=== PATIENT | female | born 1985 | race Caucasian/White ===

== ENCOUNTER 2021-07-27 08:46 | Day surgery (SDC) | payer MEDICARE, MEDICAID, SELFPAY ==
--- NOTE | 2021-07-10 13:49 | HP.PCM_ITS ---
History and Physical Date of Admission: 07/27/21 HPI: The patient is a 36 year old female presenting for pre-operative visit. She is scheduled for hysteroscopy dilation and curettage, possible IUD insertion, endometrial ablation, laparoscopic bilateral salpingectomy, for virilization and menstrual dysfunction, desires to be off OCPS on 07/27/2021. Procedure discussed along with risks, benefits and complications. Other alternatives discussed for management. Consent form signed? No- needs signed day of surgery by her father who is her health care guardian. ? ? PAST MEDICAL HISTORY PAST MEDICAL HISTORY Diagnosis Date ? ADD (attention deficit disorder) 05/24/2011 ? Learning disability 05/24/2011 ? Other abnormal heart sounds ? ? Murmur ? PMH - PAST MEDICAL HISTORY OF ? Color Vision - Normal ? ? PAST SURGICAL HISTORY PAST SURGICAL HISTORY Procedure Laterality Date ? INCISION EARDRUM,ASPIR,GEN ANESTH ? ? ? Myringotomy/tubes ? PAST SURGICAL HISTORY OF ? ? ? right foot-big toe ingrown nail ? PAST SURGICAL HISTORY OF ? ? ? wisdom teeth ? PAST SURGICAL HISTORY OF ? ? ? mole removal x 5 ? REMOVAL ADENOIDS,PRIMARY,<12 Y/O ? ? ? Adenoidectomy ? REMOVAL OF TONSILS,<12 Y/O ? ? ? Tonsillectomy ? ? ? CURRENT MEDICATIONS Current Outpatient Medications Medication Sig Dispense Refill ? nystatin (MYCOSTATIN) powder Apply 1 application to affected area twice daily. twice daily for 1--2 weeks as needed for irritation 1 Bottle 2 ? Drospirenone-Ethinyl Estradiol 3-0.03 mg per tablet Take 1 tablet by mouth once daily. 3 Package 3 ? mometasone (ELOCON) 0.1 % cream Apply 1 application to affected area once daily. (Patient not taking: Reported on 04/17/2019 ) 15 g 1 ? atomoxetine (STRATTERA) 40 mg capsule Take 40 mg by mouth once daily. 1 tablet in morning ? ? ? sertraline 100 mg tablet Take 100 mg by mouth once daily. ? ? ? ARIPiprazole (ABILIFY) 20 mg tablet Take 20 mg by mouth once daily. ? ? ? No current facility-administered medications for this visit. ? ? ALLERGIES: Patient has no known allergies. ? PERSONAL HISTORY: SOCIAL HISTORY Social History ? Tobacco Use ? Smoking status: Never Smoker ? Smokeless tobacco: Never Used Vaping Use ? Vaping Use: Never used Substance Use Topics ? Alcohol use: No ? Drug use: No ? FAMILY HISTORY: FAMILY HISTORY FAMILY HISTORY Problem Relation Age of Onset ? None Mother ? ? other (rheumatoid arthritis [Other]) Father ? ? No Known Problems Brother ? ? Cancer Maternal Grandmother ? ? lung ? Arthritis Paternal Grandmother ? ? ? REVIEW OF SYMPTOMS: GENERAL: denies fevers or chills ENDOCRINOLOGY: has not been on steroids Cardiology : denies palpitations or chest pain Respiratory: denies SOB or cough Hematology: denies history of prolonged bleeding or easy bruising or VTE Allergy: Denies history of personal or family history of allergy to anesthesia ? PHYSICAL EXAMINATION: ? VITALS: Blood pressure 118/76, pulse 84, resp. rate 16, height 5' 8.5 (1.74 m), weight 203 lb (92.1 kg), last menstrual period 05/14/2021. ? GENERAL: The patient is well nourished, well hydrated in no acute distress. , The patient is oriented to time, place, and person. NECK: Supple. No lynphadenopathy, normal thyroid, no thyromegaly. LUNGS: Clear to auscultation bilaterally. no wheezes, rhonchi or rales HEART: Regular rate and rhythm, Normal heart sounds and No murmurs or gallops ? IMPRESSION: .sterilization request, menstrual discorder ? PLAN: The risks/benefits/alternatives and personal involved for the planned hysteroscopy D&C with endometrial ablation and laparoscopic bilateral salpingectomy were reviewed with the patient. Her questions were answered to her satisfaction and she desires to proceed. I reviewed with her postop instructions and expectations. ? Postop prescriptions were given. Consent needs signed day of surgery by her father, who is her healthcare guardian/power of insurance defense attorney. Patient understands she will be permanently in the reversibly unable to bear children. Will insert Liletta or Mirena IUD if unable to do ablation due to small size of the uterus. ? ? I have reviewed and updated past medical and surgical history, medications and allergies This H&P was completed in my office on 07/10/2021. Assessment & Plan Assessment/Plan (1) Menstrual disorder: (2) Sterilization:
[2021-07-27] VITALS (10 sets, daily range): BP systolic 120–138; BP diastolic 69–96; PULSE 66–99; RESP 14–16; TEMP 35.9–36.1; O2SAT 89–98; BMI 30.9
[2021-07-27 09:19] LABS: Internal QC Validated? YES +Cl - CLEAR BKGD; Pregnancy, Urine Negative Negative
[2021-07-27] MEDS: Acetaminophen 500 MG Tablet 1000 MG PO (09:28)
[2021-07-27] MEDS: Celecoxib 200 MG Capsule PO (09:28)
[2021-07-27] MEDS: Lactated Ringers 1,000 ML 100 ML IV (09:29)
[2021-07-27 09:41] LABS: Hematocrit 42.4 % (37-47); Hemoglobin 14.3 g/dL (12.0-15.0); Mean Corp Hgb Conc 33.7 g/dL (32-36); Mean Corpuscular Hgb 28.9 pg (27.0-32.0); Mean Corpuscular Volume 85.8 fL (81-99); Mean Platelet Vol. 9.5 fl (6.2-12.0); Platelet Count 198 K/mm3 (150-450); RBC Distribution Width CV 12.5 % (11.6-14.6); RBC Distribution Width SD 38.7 fl (35.1-43.9); Red Blood Count 4.94 M/mm3 (4.2-5.4); White Blood Count 7.4 K/mm3 (4.4-11.0)
--- NOTE | 2021-07-27 10:15 | FALS_PTH ---
PATIENT: SHERYL NGUYEN LOC: [facility] [place] U#:[id number] AGE/SX: 36/F ROOM: RE07/27/[address]: Dr. Shwetha Fitzpatrick MD : 1985 BED: DIS: 07/27/2021 SPEC #: [id number] RECD: 07/27/21 12:35 STATUS: RONNIE REQ #: [id number] DAMIAN: 07/27/21 10:[address]: Shwetha Fitzpatrick DEPT: SURGICAL PATHOLOGY RECD BY: Britta Aguirre ENTERED: 07/27/21 12:54 SP TYPE: FALL TUBES OTHR DR: Ashly Primary Care Phys Tissues: A - Fallopian tube B - Perineum, NOS C - Endometrium, NOS Procedures: Surgery Specimen Level II Surgery Specimen Level IV HEADER OPERATION: Laparoscopic salpingectomy PRE-OP DIAGNOSIS: Sterilization TISSUE SUBMITTED: A - Bilateral fallopian tubes, B - Biopsy posterior cul-de-sac, C - Endometrial curettings MICROSCOPIC DIAGNOSIS A. Bilateral fallopian tubes, salpingectomy: Bilateral fallopian tubes, no pathologic diagnosis. B. Posterior cul-de-sac, biopsy: Scant strips of benign mesothelial epithelium. Fragments of fibrinous material. See comment. C. Endometrial curettings: Proliferative endometrium. Fragments of benign ecto- and endocervical epithelium. See comment. SJ:rg 07/28/2021 COMMENT B. The specimen predominantly consists of fibrinous material. C. A few fragments appear to be polypoid appearance may represent fragments of polyp. MICROSCOPIC DESCRIPTION Slides are reviewed. GROSS DESCRIPTION A - Received in fixative is one container labeled with the patient's name and designated bilateral fallopian tubes. The specimen consists of bilateral fallopian tubes including fimbrial ends measuring 5.5 cm in length and 0.5 cm in diameter and 5 cm in length and 0.5 cm in diameter. The fallopian tubes are not identified as right or left. Sections reveal unremarkable cut surfaces. Line Tender Flakeboard sections are submitted in two cassettes with each cassette containing one fallopian tube. B - Received in fixative is one container labeled with the patient's name and designated biopsy posterior cul-de-sac. The specimen consists of multiple irregular fragments of negron-yellow soft tissue that in aggregate measure 1.5 x 0.5 x 0.1 cm. The specimen is totally submitted in one cassette. C - Received in fixative is one container labeled with the patient's name and designated endometrial curettings. The specimen consists of multiple fragments of hemorrhagic soft tissue mixed with blood clot that in aggregate measure 4 x 3 x 0.3 cm. The entire specimen is submitted in two cassettes. / SJ:betsey 07/27/21 TC:5 CPT: 21760 x2, 77424 x2
[2021-07-27] MEDS: Lactated Ringers 1,000 ML 75 ML IV (10:45)
[2021-07-27] MEDS: Bupivacaine Mpf 0.5% 30 ML VIAL (10:59)
--- NOTE | 2021-07-27 11:13 | PCM.OPRPT ---
Report of Operation Date of Procedure: 07/27/21 Pre-Operative Diagnosis: Menorrhagia and sterilization request Post-Operative Diagnosis: Same plus peritoneal cyst in the posterior cul-de-sac Surgery/Procedure Performed:: Hysteroscopy dilation and curettage with Mariam endometrial ablation, laparoscopic bilateral salpingectomy and peritoneal biopsy Description of Surgical Findings:: Normal-appearing uterus, normal vagina with small introitus. Normal cervix. Bilateral fallopian tubes are normal in appearance as well as the uterus. There was some peritoneal cysts and filmy adhesions of peritoneum in the posterior cul-de-sac and also a sebaceous type material that was approximately 1.5 cm in diameter entrapped in some of the adhesions. Lush endometrium with possible small polyps. Surgeon: Shwetha Fitzpatrick equipment operating engineer: poppy Acosta Type of Anesthesia: General Anesthesiologist: Christel Champion Special Medications: non Specimen's removed: endometrial curettings, bilateral fallopian tubes, peritoneal posterior cul de sac biopsy Estimated Blood Loss (mL): 20 Fluids Replaced: 1100 Description of Procedure: The patient was taken to the operating room where she was prepped and draped in the dorsolithotomy position. A weighted speculum was placed in the vagina and the anterior lip of the cervix was grasped with a tenaculum. The Sheri uterine manipulator was placed and the remainder of the instruments were removed from the vagina. Attention was turned to the abdomen. All port sites were infiltrated with 0.5% Marcaine before skin incisions were made. A 5 mm [intraumbilical] incision was made. The anterior abdominal wall was tented up with 2 towel clamps while a 5 mm blade less trocar and sleeve were [directly inserted]. Intraperitoneal placement was confirmed with the laparoscope. The pneumoperitoneum was created and the underlying abdominal contents were intact. The patient was placed in Trendelenburg. Right and left lower quadrant ports were placed under direct visualization lateral to the inferior epigastric vessels. The bowel was swept away and the above findings were noted. The LigaSure device was used to clamp seal and transect the antimesenteric portions of the right tube to the cornual insertion of the uterus. The tube was amputated from the uterus and the pedicles were all confirmed to be hemostatic. The same procedure was performed on the contralateral side. The specimens were brought out through a 5 mm port. The pedicles were again examined and found to be hemostatic. The lateral ports were removed under direct visualization and no active bleeding was noted. Filmy adhesions in the peritoneal cyst in the posterior cul-de-sac were examined. There appeared to be a white to yellowish 1.5 cm in diameter mass entrapped in the adhesions. The adhesions were dissected off and it appeared to be a sebaceous oily type material. It was biopsied and sent to pathology. The remainder was suction irrigated out. The pelvis was irrigated out to ensure complete removal of any other remaining serial. There were no excrescences on the ovaries, no peritoneal studding. There was some brown appearing lesions near some of the adhesions was made and consistent with endometriosis lesions. The pneumoperitoneum was released. The skin incisions were closed with Monocryl suture in a subcuticular fashion and skin glue []. Attention was turned to the vaginal portion of the case. The uterus sounded to 9 cm, the cervix to 4 cm. The hysteroscope was placed into the uterus and above findings noted. A gentle sharp curettage was done and endometrial curettings handed off. The Mariam device was then readied. Set to 5 cm. It was introduced into the uterus in the standard fashion and the safety check was passed on the first attempt. The device was enabled and the ablation cycle was completed without interruption. The instrument was removed from the vagina. The remaining vaginal instruments were removed and the vaginal sweep was completed by me. The procedure was performed by me with assistance other than as dictated above. All sponge and needle counts were correct and the patient was taken to the recovery room in stable condition. Grafts/Implants Used: none Procedure Start Time: 10:26 Procedure Stop Time: 11:07 Complications none Admit VTE Documentation VTE Present on Admission: No VTE Mechan Device Prophylaxis: SCD's VTE Pharm Prophylaxis ordered?: No Reason prophylaxis not ordered:: Treatment Not Indicated
--- NOTE | 2021-07-27 11:19 | PCM.DC ---
Discharge Instructions Diet Discharge Diet: No restrictions (Increase fluid intake for the next 48 hours.) Activity Additional Activity Instructions:: Ambulate often the next week after surgery. Nothing in the vagina for 5 days. Dressing / Incision Call your doctor if your incision/area has: Continuous Slow Oozing, Sudden Increased Bleeding, Increased Pain/ Swelling, Increased Redness and Foul Smelling Discharge Call your doctor if you observe: Fever of 101 or Higher Follow Up Care Please Follow Up With: Shwetha Fitzpatrick MD When: Call [phone] for follow-up appointment. Test Results: Test results from this visit will be discussed in further detail at your follow-up appointment, if applicable. Discharge Plan Admission Primary Reason for Your Visit: Sterilization request and menorrhagia Attending Provider: Shwetha Fitzpatrick Primary Care Provider: Care Physician,Ashly Primary Instructions Patient Instructions: Laparoscopic Tubal Sterilization Discharge Orders/Prescriptions Prescriptions: No Action sertraline 100 mg Tablet 100 mg PO DAILY RF: 0 drospirenone-ethinyl estradiol 3-0.03 mg Tablet 1 tab PO DAILY RF: 0 aripiprazole 20 mg Tablet 20 mg PO DAILY RF: 0 atomoxetine 40 mg Capsule 40 mg PO DAILY RF: 0 Referrals / Follow Up: Care Physician,No Primary [Primary Care Provider] - Disposition Disposition (needs filled in before D/C Order can be placed): Home, Self Care
== END 2021-07-27 13:52 | disposition home or self-care (01) ==
LOC: SDC 08:51 → AC 08:54
PROVIDERS: Anesthesiology; Referring Provider Obstetrics & Gynecology; Visit Provider Obstetrics & Gynecology
PROC: (CPT 58661; principal; 2021-07-27 10:00)
PROC: 0U5B8ZZ Destruction of Endometrium, Via Natural or Artificial Opening Endoscopic (ICD-10-PCS; CPT 58558; 2021-07-27 10:00)
DX: Z30.2 Encounter for sterilization (principal); N92.0 Excessive and frequent menstruation with regular cycle; K66.8 Other specified disorders of peritoneum; F32.9 Major depressive disorder, single episode, unspecified; F98.8 Other specified behavioral and emotional disorders with onset usually occurring in childhood and adolescence; Z79.899 Other long term (current) drug therapy
CPT/HCPCS: 00840; 49321; 58563; 58661; 81025; 85027; 88302; 88305; J7120; J2405